=== PATIENT | female | born 2005 | race Caucasian/White ===

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

== ENCOUNTER 2024-08-18 22:14 | Emergency (ER) | payer OTHER ==
[~2024-08-18] VITALS: Ht 157.5 cm; Wt 81.6 kg
== END 2024-08-19 05:56 | disposition home or self-care (01) ==
LOC: ER 22:14
DX: M94.0 Chondrocostal junction syndrome [Tietze] (principal); Z88.0 Allergy status to penicillin; Z88.6 Allergy status to analgesic agent